=== PATIENT | male | born 1955 | race Caucasian/White ===

== ENCOUNTER → 2017-04-18 | Outpatient (CLI) | payer BC ==
[~2017-04-18] MED LIST: ASPIRIN81 M2 PO; BENICAR20 MG PO; FISH OIL 1,4001 EACH PO; GLUCOSAMINE 1,51 CA1 PO; LEVOTHYROXINE75 MCG PO; NAPROXEN PO
--- NOTE | ~2017-04-18 | HM ---
Unit #: [id number] #: [id number] Patient: KIA MORRISON [id number] [address] [place], [place] [address] [id number] O MR#: [id number] NAME: KIA MORRISON : 1955 SEX: M STUDY DATE/TIME: UNIT: [facility] [place]: STUDY DESCRIPTION: Holter monitor Attending Physician: Jarred Canseco M.D. Referring Physician: Jarred Canseco M.D. Primary Care Physician: Jarred Canseco M.D. CARDIOLOGY REPORT EXAM Holter monitor. DATE APPLIED April 19, 2017. DATE SCANNED April 23, 2017. ORDERED BY Salma Smith M.D. READ BY [facility] Cardiologists, Abram Casey M.D. INDICATION Syncope. COMMENTS 1. Basic rhythm is atrial fibrillation. Total beats 111,037. Average heart rate 80 per minute. Minimum heart rate was 47 per minute. 2. No significant ventricular arrhythmias noted. 3. No high-degree AV blocks noted. 4. No diary with symptoms available. Dictated by... Tavares BarrientosJ/jag TD: 04/24/2017 16:23 JOB #: [id number] Unit #: [id number] #: [id number] Patient: KIA MORRISON CARDIOLOGY REPORT Page 1 of 1 X Abram Casey MD HOLTER MONITOR REPORT
== END | disposition home or self-care (01) ==
LOC: CEKG 07:30
DX: I48.2 Chronic atrial fibrillation (principal)
CPT/HCPCS: 93225; 93226